=== PATIENT | female | born 1970 | race Two or more races ===

== ENCOUNTER 2023-02-28 12:02 | Emergency (ER) | payer OTHER ==
[~2023-02-28] VITALS: Ht 165.1 cm; Wt 59.9 kg
[2023-02-28 13:45] LABS: HEMATOCRIT 38.7 % (36.0-45.00); HEMOGLOBIN 12.8 g/dL (12.0-15.00); MEAN CELL VOLUME 79.2 fL (80.00-100.00); MEAN CORPUSCULAR HEMOGLOBIN 26.1 pg (27.00-32.0); PLATELET COUNT 247 K/uL (150-450); RED BLOOD COUNT 4.88 M/uL (4.00-6.00); RED CELL DISTRIBUTION WIDTH 16.4 % (11.5-14.5)
[2023-02-28 14:20] LABS: PH,URINE 7.5 (5.0-8.0); URINE APPEARANCE Clear; URINE BILIRRUBIN Negative (NEGATIVE); URINE BLOOD Large; URINE COLOR Yellow; URINE GLUCOSE Negative (NEGATIVE); URINE LEUKOCYTE Negative; URINE NITRATE Negative; URINE PROTEIN Negative (NEGATIVE); URINE UROBILINOGEN 0.2 E.U./dl
[2023-02-28 14:21] LABS: URINE EPITHELIAL CELLS 4.6 uL (0.0-38.8); URINE RBC 760.6 uL (0.0-20.8)
[2023-02-28 16:17] LABS: CALCIUM 9.4 mg/dL (8.5-10.1); CREATININE SERUM 0.73 mg/dL (0.55-1.02); GFR 84.39; POTASSIUM 4.06 mEq/L (3.5-5.1)
== END 2023-02-28 15:12 | disposition home or self-care (01) ==
LOC: ER 12:03
PROVIDERS: General Practice
DX: N20.0 Calculus of kidney (principal); D25.9 Leiomyoma of uterus, unspecified